=== PATIENT | female | born 1990 | race African-American/Black ===

== ENCOUNTER 2016-06-26 14:14 | Emergency (ER) | payer SELFPAY ==
[2016-06-26 14:16] VITALS: BMI 23.3
[2016-06-26 14:18] VITALS: TEMP 98.7
[2016-06-26] MEDS ORDERED: IBUPROFEN 800 MG TAB PO ONE (14:48)
--- NOTE | 2016-06-26 14:48 | EDPRACDOC ---
- General Information Chief Complaint: Chest Pain Stated Complaint: CP PAIN WITH BREATHING COUGH Time Seen by Provider: 06/26/16 14:42 Information Source: Patient Mode of Arrival: Car Home Medications: Home Medications Hydrocodone Bit/Acetaminophen [Hydrocodon-Acetaminophen 5-325] 1 tab PO Q6 PRN # 15 tab 06/26/16 Prednisone [Deltasone, Orasone] 40 mg PO DAILY 5 Days 06/26/16 Allergies/Adverse Reactions: Allergies Allergy/AdvReac Type Severity Reaction Status Date / Time No Known Allergies Allergy Verified 06/26/16 16:07 - History of Present Illness Onset: 1 week HPI: PT COMPLAINS OF SUBSTERNAL, SHARP STABBING CHEST PAIN OFF/ON X 1 YEAR, STATES WORSE LAST NIGHT, STATES WORSE WITH LAYING ON HER SIDE, FELT SOBR LAST NIGHT, STATES HAS NON-PROD COUGH, NO FEVER OR CHILLS, NO PERSONAL HX OF CAD, STATES DAD HAS "A LOT OF HEART PROBLEMS". Chest Pain Location: Reports: Substernal Pain Radiation: Reports: None Symptoms Occur: Reports: Suddenly, At Rest Cardiac Risk Factors: Reports: Smoker, Family History Cardiac History of: Reports: Similar Pain in Past PE Risk Factors: Reports: None Medications within 24 Hours: Reports: None Prehospital Care: Reports: None Pain Came On: Reports: Suddenly Pain Status: Present Now Pain Description: Reports: Sharp, Stabbing, Squeezing Pain Severity: Moderate Pain Worsens With: Reports: Coughing, Breathing, Movement, Position Pain Improves With: Reports: Nothing Associated Signs and Symptoms: Reports: SOB. Denies: Palpitations, Diaphoretic , Abdominal Pain, Nausea, Vomiting, Calf Pain or Swelling, Chest Rash ED Past Medical History - History Reviewed Yes Nurses notes reviewed and agree except as marked No Past Medical History: Yes Patient has no past medical history - Patient Medical History Psychological History: Denies: Depression - Social Medical History Smoking Status: Heavy tobacco smoker (5 or more cigarettes/day or daily pipe/ cigar) ETOH: None Substance Abuse: None EDM Review of Systems - Review of Systems Constitutional: negative: Chills, Fever Eyes: negative: Blurred Vision, Double Vision Ears: negative: Drainage Throat: negative: Pain Nose: negative: Congestion, Discharge Respiratory: Cough, Shortness of Breath. negative: Wheezing Cardiovascular: Chest Pain. negative: Palpitations Gastrointestinal: negative: Diarrhea, Nausea, Pain, Vomiting Genitourinary: negative: Dysuria, Frequency Neurological: negative: Dizziness, Headache, Numbness, Weakness Musculoskeletal: No Symptoms Reported Integumentary: No Symptoms Reported - Physical Exam Constitutional: Alert (Awake), No apparent distress Oriented to: Time, Person, Place Last recorded Vital Signs: Last Vital Signs Temp 98.7 F 06/26/16 14:14 Pulse 119 06/26/16 14:14 Resp 18 06/26/16 14:36 BP 144/76 06/26/16 14:14 Pulse Ox 97 06/26/16 14:14 Oxygen Pulse Oxygen Saturation 97 O2 Device Oxygen Flow Rate Fraction of Inspired Oxygen ( FIO2) - HEENT Head: Normal ( normocephalic) Eye Exam: Normal (PERRL, EOMI, Sclera white) Oropharynx: Normal (Pharynx:Moist without exudate,Gums-no swelling) Tympanic Membrane: Normal ENT EAC: Normal TMJ: Normal Nose: No Symptoms Reported (septum midline) Neck: Normal (FROM, trachea at midline) - Respiratory/Cardiovascular Respiratory: Normal - CTA (BBS clear to auscultation without adventitious sounds ) Cardiovascular: Normal (RRR without murmur, gallop or rub) - GI Auscultation: Normal (NABS) Palpation: Normal (Soft,No rebound or guarding, non distended) Tenderness: Non tender Velázquez's Sign: Negative - Musculoskeletal Back: Normal (Non-Tender) Extremities: Normal (Normal tone, Pulses 2+ No cyanosis or edema, FROM) - Integumentary Skin: Normal, Warm, Dry Lymphatics: Normal (no adenopathy) - Neurologic Memory Impaired: Normal Motor Function: Normal (Normal tone, Pulses 2+ No cyanosis or edema, FROM) Cranial Nerve: Normal (CN II-X11 intact sensation, strength 5/5) Cerebellar: Normal Mood Description: Normal Perception: Normal ED Chest Pain Exam - Respiratory/Cardiovascular Respiratory: Normal - CTA Cardiovascular/Chest: Normal Radial Pulse: Normal Edema: negative: 1+, 2+, 3+, 4+, 5, 6 Chest Palpation: Tender, Reproduces Pain - Differential Diagnosis Chest wall pain, Costochondritis, Gastritis, Myocardial infarction, Pneumonia - Action Patient received Aspirin within last 24 hours?: No ASA given in the ED: No Aspirin therapy held due to: Other-specify below* (NOT INDICATED) Patient received Beta Da within last 24hrs: No Beta Da held due to: Other-specify below* (NOT INDICATED) - Re-evaluation Re-evaluation 1 Re-evaluation Time: 16:14 (STABLE) - EKG EKG #1 EKG Time: 14:53 -: Yes EKG interpreted by me Rate: bpm: 97 [place]: Normal Rhythm: NSR Block: None Hypertrophy: None ST: Normal Comments: NO OLD EKG FOR COMPARISON - Diagnostic Imaging CXR Image interpreted by: Radiologist CHEST 2 VIEW COMPARISON: March 02, 2010 FINDINGS: Lungs are clear. Heart size and pulmonary vascularity are normal. No adenopathy. No pneumothorax. No bone lesions. IMPRESSION: No abnormality noted. Decision Time to Discharge: 16:14 - Departure Disposition: Home Condition: Stable Final Diagnosis: Costochondritis, acute Instructions: Costochondritis (ED) Education/Counseling Given To: Patient Education/Counseling Given Regarding: Diagnosis, Treatment, Prognosis, Follow Up Referrals: None,No Provider [Primary Care Provider] - One Week Prescriptions: New Hydrocodone Bit/Acetaminophen [Hydrocodon-Acetaminophen 5-325] 1 tab PO Q6 PRN #15 tab PRN Reason: Pain Prednisone [Deltasone, Orasone] 40 mg PO DAILY 5 Days Additional Instructions: APPLY WARM COMPRESSES TO YOUR CHEST 20 MINS AT A TIME 4 - 5 TIMES DAILY NEEDED FOR PAIN.
--- NOTE | 2016-06-26 15:26 | DIRPT ---
CLINICAL DATA: Cough and chest pain, intermittent for past year EXAM: CHEST 2 VIEW COMPARISON: March 02, 2010 FINDINGS: Lungs are clear. Heart size and pulmonary vascularity are normal. No adenopathy. No pneumothorax. No bone lesions. IMPRESSION: No abnormality noted. Electronically Signed By: Manish Sanon III, M.D. On: 06/26/2016 15:23
[2016-06-26 16:17] VITALS: BP 136/87; PULSE 80
== END 2016-06-26 16:29 | disposition home or self-care (01) ==
LOC: EDMC 14:14
DX: M94.0 Chondrocostal junction syndrome [Tietze] (principal)
CPT/HCPCS: 71020; 93005; 99283; J3490